=== PATIENT | male | born 1980 | race Hispanic/Latino ===

== ENCOUNTER 2019-02-02 14:37 | Inpatient (IN) ==
[2019-02-02] MEDS ORDERED: NS 1,000 ML IV ONE ×3 (15:22→19:00)
[2019-02-02] MEDS ORDERED: HUMULIN R IV ONE (15:22)
[2019-02-02 16:02] LABS: BASO# 0.02 X1000 (0.0-0.2); BASO% 0.1 % (0.0-0.8); HEMATOCRIT 46.9 % (42.0-52.0); HEMOGLOBIN 15.1 g/dL (14.0-18.0); IMM GRAN# 0.17 X1000 (0.0-0.04); IMM GRAN% 1.1 % (0.0-0.5); LYMPH# 0.67 X1000 (1.2-3.4); LYMPH% 4.3 % (20.5-51.1); MCH 27.7 PG (27-31); MCHC 32.2 g/dL (33-37); MCV 86.1 FL (81-99); MONO# 0.83 X1000 (0.11-0.59); MONO% 5.3 % (1.7-9.3); MPV 11.4 FL (7.4-10.4); NEUT# 13.94 X1000 (1.4-6.5); NEUT% 89.2 % (42.2-75.2); PLT 428 X1000 (130-400); RBC 5.45 XMIL (4.7-6.1); WBC 15.63 X1000 (4.8-10.8)
[2019-02-02 16:08] LABS: ALLEN TEST NO; BLOOD TYPE ARTERIAL; HCO3-(ACT) 7.7 mmoll (20.0-26.0); METHB 1.1 % (0.0-1.5); O2(CT) 20.6 mL/dL (15.0-23.0); O2HB 95.9 % (95.0-99.0); PO2(98.6) 110 mmHg (60-100); SAMPLE BLOOD; SAO2 97.2 % (95.0-100.0); THB 15.2 g/dL (11.5-17.4)
[2019-02-02 16:10] LABS: MODALITY ROOM AIR; pH(98.6) 7.15 (7.35-7.45)
[2019-02-02 16:11] LABS: PCO2(98.6) 12 mmHg (35-45)
[2019-02-02] MEDS: HUMULIN R 100 UNIT in NS 99 ML IV SCH ×3 (16:15→20:35)
--- NOTE | 2019-02-02 16:31 | Diag Imaging Result Doc PS360 ---
EXAM: CHEST-1 VIEW INDICATION: FEVER, COUGH TECHNIQUE: One view COMPARISON: None. FINDINGS: The lungs are grossly clear. There is no discrete pleural fluid collection or pneumothorax. The cardiomediastinal silhouette and central vasculature are grossly unremarkable. IMPRESSION: No evidence of acute pathology by plain radiograph. Electronically signed by Dylan Womack 02/02/2019 4:28 PM
[2019-02-02 16:32] LABS: AGAP 38; ALB/GLOB RATIO 0.9; ALBUMIN 4.2 g/dL (3.5-5.0); ALKALINE PHOSPHATASE 130 U/L (32-122); AMYLASE 65 U/L (20-200); BUN 20 mg/dL (8-22); CALCIUM 9.6 mg/dL (8.8-10.2); CHLORIDE 85 mmol/L (98-107); COSMO 293; CREATININE 1.3 mg/dL (0.7-1.2); ESTIMATED GFR > 60; GOT 10 U/L (10-34); GPT 17 U/L (10-44); LIPASE 39 U/L (13-60); POTASSIUM 4.8 mmol/L (3.5-5.1); SODIUM 130 mmol/L (136-145); TCO2 7 mmol/L (25-35); TOTAL BILIRUBIN 0.19 mg/dL (0.20-1.00); TOTAL PROTEIN 8.8 g/dL (6.3-8.3)
[2019-02-02 16:34] LABS: GLUCOSE 638 mg/dL (70-104)
[2019-02-02] MEDS ORDERED: NS 3,000 ML ONE (17:11)
--- NOTE | 2019-02-02 17:40 | PROVIDER DOCUMENTATION ---
This chart was entered by Maribel Hernandez Scribe, acting as scribe for Edgar Garsia MD. HPI-General Adult - General Chief Complaint: High Blood Sugar Stated Complaint: FLU SX,DIABETIC Time Seen by Provider: 02/02/19 15:21 Source: patient, family Allergies/Adverse Reactions: Patient Allergies Allergy/AdvReac Type Severity Reaction Status Date / Time No Known Allergies Allergy Verified 02/02/19 15:52 - History of Present Illness -Gen Adult Nature of Presenting Problems: 38 yom presents to the ed with family at bedside. pt c/o bodyaches, n/v tachycardia, dehydration and FSBG <500. pt sts onset 3 days prior Location of Pain/Injury: reports: generalized (bodyaches) Quality of Pain: reports: aching Severity: reports: moderate Onset/Duration: reports: 3 days ago Timing: reports: still present Context/Activities at Onset: reports: light activity Modifying Factors: improves with: nothing Associated Symptoms: reports: malaise, muscle aches, nausea, vomiting, weakness. denies: arm pain, back/neck pain, chest pain, diarrhea, dizziness, fever/chills, headaches, shortness of breath Similar Symptoms Previously?: No Recently seen or treated by another doctor?: No - Diabetes Related Context Context: reports: high blood sugar (<500) Review of Systems - Adult - REVIEW OF SYSTEMS - ADULT Constitutional: reports: see HPI, fatique. denies: chills, fever Eyes: reports: no symptoms reported Ears, Nose, Mouth & Throat: reports: no symptoms reported Cardiovascular: denies: chest pain, palpitations Respiratory: denies: cough, shortness of breath, wheezing Gastrointestinal: reports: see HPI, nausea, poor appetite, vomiting. denies: abdominal pain, diarrhea Genitourinary: reports: no symptoms reported Musculoskeletal: reports: see HPI, muscle aches. denies: back pain, neck pain Integumentary: reports: no symptoms reported Neurological: denies: dizziness/vertigo, headache/migraines Psychiatric: reports: no symptoms reported Endocrine: reports: no symptoms reported Hematologic/Lymphatic: reports: no symptoms reported Allergic/Immunologic: reports: no symptoms reported All Other Systems: Reviewed and Negative Past History - Adult - PAST MEDICAL HISTORY-ADULT Review of Records: reports: Old Records Reviewed, Nursing Assessment Review, Medications Reviewed, Social history reviewed & non-contributory. Major Childhood Illnesses: reports: denies history Cardiovascular: reports: denies history Respiratory: reports: denies history Gastrointestinal: reports: denies history Genitourinary: reports: denies history Musculoskeletal: reports: denies history Hand Dominance: Right Handed Neurological: reports: denies history Psychiatric: reports: denies history Endocrine/Immune: reports: Diabetes Diabetes Type: Type 2 Diabetes controlled by:: PO Meds Other Conditions: reports: denies history - PRIOR SURGERIES/PROCEDURES Surgical/Procedure History: reports: reviewed, not pertinent - IMMUNIZATION STATUS Childhood Immunizations: See Nurse Assessment Flu Vaccine: See Nurse Assessment - FAMILY HISTORY Family History: reviewed, not pertinent - SOCIAL HISTORY Smoking: denies Substance Use: denies Alcohol Use Frequency: never Living Situation: family Physical Exam-General - PHYSICAL EXAM-ADULT Initial Vital Signs Reviewed: Yes - CONSTITUTIONAL General Appearance: alert, mild distress, thin. negative: appears well - EYES Eyes: PERRL/EOMI, pale conjunctivae - HEAD, EARS, NOSE, MOUTH & THROAT HENMT: negative: moist mucous membranes (dry) - NECK Neck: normal inspection - RESPIRATORY Respiratory: chest non-tender, lungs clear, normal breath sounds - CARDIOVASCULAR Cardiovascular: normal peripheral pulses, tachycardia (147) - GASTROINTESTINAL (ABDOMEN) Abdominal Exam: normal bowel sounds, non tender, soft - LYMPHATIC Lymphatic: no adenopathy - MUSCULOSKELETAL Back Exam: normal inspection, no CVA tenderness, no vertebral tenderness Extremity: normal range of motion, normal gait, normal inspection, no pedal edema, no calf tenderness, normal capillary refill - SKIN Integumentary: warm/dry, pallor - NEUROLOGIC Neurologic: grossly normal - PSYCHIATRIC Psych/Mental Status: normal mood/affect, normal thought content, normal thought process, oriented x 3 Progress - PLAN OF CARE/RESULTS Progress/Plan/Lab Results: Vital Signs - 8 hr 02/02/19 14:44 Temperature 98.2 F Pulse Rate 147 H Respiratory Rate 20 Blood Pressure 110/78 O2 Sat by Pulse Oximetry 98 Laboratory Results - last 24 hr 02/02/19 14:49 POC Glucose 500 H Orders Category Date Time Status AMYLASE [CHEM] Stat Lab 02/02/19 15:21 Uncollected CBC WITH DIFF [HEME] Stat Lab 02/02/19 15:21 Uncollected COMPREHENSIVE METABOLIC PANEL [CHEM] Stat Lab 02/02/19 15:21 Uncollected INFLUENZA SCREEN A/B Stat Lab 02/02/19 15:21 Uncollected LIPASE [CHEM] Stat Lab 02/02/19 15:21 Uncollected 0.9% Sodium Chloride Inj [Ns] 1,000 ml Med 02/02/19 15:22 Active IV 999 mls/hr Insulin Human Regular [Humulin R] Med 02/02/19 15:22 Discontinued 10 unit IV NOW ONE Result Diagrams: 02/02/19 13:50 02/02/19 13:50 - REASSESSMENT Reassessment #1 Time Reassessed: 16:16 (pt is in bed with family at bedside. pt sts nausea has improved) Status: improving Reassessment #2 Time Reassessed: 17:37 (pt in bed resting) Status: improving (patient now stating he wants something to eat; labs confirm DKA, pt has been placed on insulin infusion protocol. will consult for admit.) - XRAY 1 XRAY: Bilateral XRAY Study: Chest Impression: See EMR Report (EXAM: CHEST-1 VIEW INDICATION: FEVER, COUGH TECHNIQUE: One view COMPARISON: None. FINDINGS: The lungs are grossly clear. There is no discrete pleural fluid collection or pneumothorax. The cardiomediastinal silhouette and central vasculature are grossly unremarkable. IMPRESSION: No evidence of acute pathology by plain radiograph. Electronically signed by Dylan Womack 02/02/2019 4:28 PM 02/02/191627 Interpreting Physician: Dylan Womack MD Dictated Date/Time: 02/02/191627 cc: Edgar Garsia MD; None,PCP) - CONSULTS/PCP/HOSPITALIST Notification #1 *Consult/PCP/Hospitalist*: hospitalist lópez Time Discussed: 17:37 Consult Disposition: Admit Departure - Departure Date of Disposition Decision: 02/02/19 Time of Disposition Decision: 17:39 DIAGNOSIS: DKA (diabetic ketoacidoses) Disposition: ADMITTED INPATIENT 09 Certified Medical Emergency: Emergent Condition: Critical Referrals and Follow-Ups: None,PCP [Primary Care Provider] - - Critical Care Note This patient required my direct & personal management of CC.: Yes Total Time (mins): 38 Critical Care Statement: This patient required my direct personal management to treat or rule out processes, the absence of which, could potentiallly result in sudden, clinically significant life or limb threatening deterioration. Attestation - Physician/ MICHELLE Attestation Patient care was provided by Advanced Practice Provider:: No The physician spent face to face time with patient:: Yes Advanced Practice Provider documentation review:: Supervising physician onsite and consulted in the evaluation and care of this patient. The physician did have a face to face encounter with the patient. This chart was documented by the indicated scribe, (Maribel Hernandez Scribe) and accurately reflects the services I performed and decisions made by me, Edgar Garsia MD, as attested by the provider's signature.
[2019-02-02] MEDS ORDERED: TYLENOL PO PRN (19:10)
[2019-02-02 19:22] LABS: ALLEN TEST YES; BE -15.3 mmoll (-3.0-3.0); BLOOD TYPE ARTERIAL; METHB 0.8 % (0.0-1.5); O2HB 96.1 % (95.0-99.0); PCO2(98.6) 21 mmHg (35-45); PO2(98.6) 97 mmHg (60-100); SAMPLE BLOOD; SAO2 97.5 % (95.0-100.0); THB 12.5 g/dL (11.5-17.4); pH(98.6) 7.27 (7.35-7.45)
[2019-02-02 19:23] LABS: MODALITY ROOM AIR
[2019-02-02 19:56] LABS: AGAP 24; BUN 16 mg/dL (8-22); CALCIUM 8.5 mg/dL (8.8-10.2); CHLORIDE 99 mmol/L (98-107); COSMO 282; CREATININE 0.9 mg/dL (0.7-1.2); ESTIMATED GFR > 60; GLUCOSE 353 mg/dL (70-104); MAGNESIUM 1.6 mg/dL (1.5-2.7); PHOSPHORUS 2.2 mg/dL (2.7-4.5); SODIUM 133 mmol/L (136-145); TCO2 10 mmol/L (25-35)
[2019-02-02] MEDS: ZITHROMAX 500 MG/NS 500 MG/250 ML IVPB IV SCH (20:09)
[2019-02-02] MEDS: LOVENOX SUBQ SCH (20:09)
--- NOTE | 2019-02-02 20:46 | HISTORY AND PHYSICAL ---
CHIEF COMPLAINT: Nausea, vomiting. HISTORY OF PRESENT ILLNESS: A 38-year-old male with a past medical history of diabetes, uncontrolled. As for the patient, only takes metformin 1000 mg twice a day. He has not been seen by a doctor for at least 1 year. Presented to the emergency department with a chief complaint of nausea, vomiting and also complaining of shortness of breath. As per the patient, he started having some flu-like symptoms last Thursday, 4 days ago and some cough. He started having greenish discharge through his nose as well. He did not seek any medical attention. Then, since yesterday, he started having nausea and vomiting and he has not been tolerating p.o. at all. Today, he was getting worse and he felt that he was more tachypneic so he decided to come to the emergency department. In the emergency department, he was found to have a WBC of 15.6, a pH of 7.1, pCO2 of 12. Sodium level is 130. Anion gap 38, creatinine 1.3, and glucose level 638. So this patient presented with DKA. He will receive 3 L of normal saline since he is dehydrated. We will start this patient on the DKA protocol and send this patient to the ICU. At the moment of my physical exam, I did not see any source of infection, but he feels some pressure at the level of the maxillary area. I will place this patient on azithromycin and probably some nasal decongestion medication. Like I said, we will monitor this patient in the ICU. We will ask for a hemoglobin A1c and we will do diabetes education. REVIEW OF SYSTEMS: As per the patient, he has been losing weight, around 40 pounds in 1 year unintentionally. He is not complaining of chest pain. Extremities, he is feeling some burning sensation at the level of the feet. The rest of the 14 points of review of systems were reviewed. All of them negative except as per HPI. PAST MEDICAL HISTORY: Diabetes. Apparently, he was diagnosed 4 years ago and he has been taking metformin 1000 mg twice a day. Apparently, he ran out of this medication yesterday. PAST SURGICAL HISTORY: None. SOCIAL HISTORY: He denies alcohol, tobacco use, and drugs. FAMILY HISTORY: Noncontributory. ALLERGIES: He denies any kind of allergies. PHYSICAL EXAMINATION: VITAL SIGNS: Temperature 98.2, pulse 130, respiratory rate 24, blood pressure 104/65, oxygen saturation 98% on room air. HEENT: Head normocephalic. No trauma. PERRLA. He has some pressure upon palpation at the level of the maxillary area. NECK: Supple. No JVD. Central trachea. CHEST: Clear to auscultation. No wheezing. No rales. ABDOMEN: Soft. Mild tenderness to palpation at the level of the periumbilical area. Positive bowel sounds. EXTREMITIES: No edema. No clubbing. No cyanosis. NEUROLOGICAL: The patient is alert and oriented x3. No focal deficits. LABORATORY: WBC 15.6, hemoglobin 15.1, hematocrit 46.9, platelets 428. PH 7.15, pCO2 of 12, pO2 of 110, bicarbonate 7.7. Sodium 130, potassium 4.8, chloride 85, BUN 20, creatinine 1.3, glucose 638, calcium 9.6. Magnesium 1.9. Alkaline phosphatase 130. Lipase 39, amylase 6.5. Albumin 4.2. ASSESSMENT AND PLAN: 1. Diabetic ketoacidosis. We will put this patient on the diabetic ketoacidosis protocol. He is receiving 3 L of fluid/normal saline at this moment. He looks dehydrated. I will ask for a hemoglobin A1c in the morning. We will replace his electrolytes and lab work frequently. 2. Type 2 diabetes, possible uncontrolled. As per the patient, when he measures his blood sugar at home, these are always around high 200s to 300s. I will monitor the blood sugar closely. I will get a hemoglobin A1c. I will do diabetes education. 3. Possible acute kidney injury. Creatinine is 1.3. We do not have a baseline creatinine. We will monitor. We will recheck that in the morning. 4. Hyponatremia. Likely secondary to hyperglycemia. Probably pseudohyponatremia. 5. Leukocytosis with possible sinusitis. I have placed this patient on azithromycin and ceftriaxone. We will monitor. cc: Fuentes Dooley MD
[2019-02-02] MEDS ORDERED: 1/2 NS 1,000 ML ONE (21:02)
[2019-02-02] MEDS: ROCEPHIN 1 GM in NS 50 ML IV SCH (21:12)
[2019-02-02] MEDS ORDERED: D5 1/2 NS 1,000 ML IV SCH (21:15)
[2019-02-02] MEDS ORDERED: SODIUM PHOSPHATE 30 MMOL in D5W 250 ML IV PRN ×2 (21:15→23:15)
[2019-02-02] MEDS ORDERED: MAGNESIUM SULFATE 2 GM/S.W.I. 2 GM/50 ML IVPB IV PRN (21:15)
[2019-02-02] MEDS ORDERED: D50W SYRINGE IV PRN ×2 (21:15→23:15)
[2019-02-02] MEDS ORDERED: 1/2 NS 1,000 ML IV SCH (21:15)
[2019-02-02] MEDS ORDERED: SODIUM BICARBONATE 8.4% 50 MEQ in D5W 250 ML IV PRN ×2 (21:15→23:15)
[2019-02-02] MEDS ORDERED: SODIUM BICARBONATE 8.4% 100 MEQ in D5W 500 ML IV PRN ×2 (21:15→23:15)
[2019-02-02] MEDS ORDERED: ZOFRAN IV PRN (21:45)
[2019-02-02 23:02] LABS: ALLEN TEST YES; BE -13.7 mmoll (-3.0-3.0); BLOOD TYPE ARTERIAL; HCO3-(ACT) 14.2 mmoll (20.0-26.0); O2(CT) 16.5 mL/dL (15.0-23.0); PCO2(98.6) 25 mmHg (35-45); PO2(98.6) 84 mmHg (60-100); SAMPLE BLOOD; SAO2 96.6 % (95.0-100.0); THB 12.3 g/dL (11.5-17.4); pH(98.6) 7.27 (7.35-7.45)
[2019-02-02 23:03] LABS: MODALITY ROOM AIR
[2019-02-02 23:15] LABS: MAGNESIUM 1.5 mg/dL (1.5-2.7); PHOSPHORUS 1.8 mg/dL (2.7-4.5)
[2019-02-02] MEDS ORDERED: HUMULIN R 100 UNIT in NS 99 ML IV SCH (23:15)
[2019-02-02 23:16] LABS: ESTIMATED GFR > 60
[2019-02-02 23:22] LABS: AGAP 20; BUN 12 mg/dL (8-22); CALCIUM 7.9 mg/dL (8.8-10.2); CHLORIDE 107 mmol/L (98-107); COSMO 282; CREATININE 0.8 mg/dL (0.7-1.2); GLUCOSE 219 mg/dL (70-104); SODIUM 138 mmol/L (136-145); TCO2 11 mmol/L (25-35)
[2019-02-03] MEDS ORDERED: POTASSIUM CHLORIDE 20 MEQ/SWI 20 MEQ/100 ML IVPB IV ONE (00:45)
[2019-02-03] MEDS: D5 1/2 NS 1,000 ML IV SCH ×5 (00:48→22:58)
[2019-02-03] MEDS: 1/2 NS 1,000 ML IV SCH ×4 (00:48→22:57)
[2019-02-03 03:17] LABS: INR 0.98; PROTIME 13.8 Seconds (11.0-16.0)
[2019-02-03 03:18] LABS: PTT 37.2 Seconds (22.3-41.8)
[2019-02-03 03:23] LABS: ESTIMATED GFR > 60
[2019-02-03 03:24] LABS: AGAP 25; BUN 11 mg/dL (8-22); CALCIUM 8.8 mg/dL (8.8-10.2); CHLORIDE 106 mmol/L (98-107); COSMO 289; CREATININE 0.8 mg/dL (0.7-1.2); GLUCOSE 283 mg/dL (70-104); MAGNESIUM 1.5 mg/dL (1.5-2.7); PHOSPHORUS 2.2 mg/dL (2.7-4.5); POTASSIUM 3.6 mmol/L (3.5-5.1); SODIUM 140 mmol/L (136-145); TCO2 9 mmol/L (25-35)
[2019-02-03 03:33] LABS: BLOOD TYPE ARTERIAL; SAMPLE BLOOD
[2019-02-03 03:34] LABS: ALLEN TEST YES; BE -12.8 mmoll (-3.0-3.0); HCO3-(ACT) 14.9 mmoll (20.0-26.0); METHB 0.8 % (0.0-1.5); MODALITY ROOM AIR; O2(CT) 16.7 mL/dL (15.0-23.0); O2HB 95.5 % (95.0-99.0); PCO2(98.6) 23 mmHg (35-45); PO2(98.6) 84 mmHg (60-100); SAO2 97.1 % (95.0-100.0); THB 12.4 g/dL (11.5-17.4); pH(98.6) 7.31 (7.35-7.45)
[2019-02-03] MEDS: MAGNESIUM SULFATE 2 GM/S.W.I. 2 GM/50 ML IVPB IV PRN ×2 (04:42→18:23)
[2019-02-03 05:29] LABS: BASO# 0.01 X1000 (0.0-0.2); BASO% 0.1 % (0.0-0.8); HEMOGLOBIN 12.6 g/dL (14.0-18.0); IMM GRAN# 0.05 X1000 (0.0-0.04); IMM GRAN% 0.3 % (0.0-0.5); LYMPH# 1.16 X1000 (1.2-3.4); LYMPH% 7.7 % (20.5-51.1); MCH 27.9 PG (27-31); MCHC 33.2 g/dL (33-37); MCV 84.3 FL (81-99); MONO# 1.41 X1000 (0.11-0.59); MONO% 9.4 % (1.7-9.3); MPV 10.4 FL (7.4-10.4); NEUT# 12.44 X1000 (1.4-6.5); NEUT% 82.5 % (42.2-75.2); PLT 337 X1000 (130-400); RBC 4.51 XMIL (4.7-6.1); RDW 12.7 % (11.5-14.5); WBC 15.07 X1000 (4.8-10.8)
[2019-02-03 05:40] LABS: HEMOGLOBIN A1C 15.3 % (4.8-6.0)
[2019-02-03 06:22] LABS: ALLEN TEST YES; BE -12.9 mmoll (-3.0-3.0); BLOOD TYPE ARTERIAL; HCO3-(ACT) 14.8 mmoll (20.0-26.0); METHB 0.3 % (0.0-1.5); O2(CT) 16.6 mL/dL (15.0-23.0); O2HB 95.8 % (95.0-99.0); PCO2(98.6) 24 mmHg (35-45); PO2(98.6) 83 mmHg (60-100); SAMPLE BLOOD; THB 12.3 g/dL (11.5-17.4)
[2019-02-03 06:23] LABS: MODALITY ROOM AIR
--- NOTE | 2019-02-03 07:06 | EKG Report ---
Test Performed on : 02/02/2019 6:51:54 PM Test Reason : DKA Blood Pressure : / mmHG Vent. Rate : 116 BPM Atrial Rate : 116 BPM P-R Int : 132 ms QRS Dur : 084 ms QT Int : 366 ms P-R-T Axes : 060 074 058 degrees QTc Int : 508 ms Sinus tachycardia. Otherwise normal ECG No previous ECGs available Unconfirmed Result
[2019-02-03] MEDS ORDERED: POTASSIUM CHLORIDE 20 MEQ/SWI 20 MEQ/100 ML IVPB IV PRN (08:15)
[2019-02-03] MEDS ORDERED: POTASSIUM CHLORIDE 40 MEQ/SWI 40 MEQ/100 ML IVPB IV PRN (08:15)
[2019-02-03 09:13] LABS: ESTIMATED GFR > 60
[2019-02-03 09:25] LABS: AGAP 18; ALBUMIN 3.1 g/dL (3.5-5.0); ALKALINE PHOSPHATASE 89 U/L (32-122); BUN 10 mg/dL (8-22); CALCIUM 8.4 mg/dL (8.8-10.2); CHLORIDE 108 mmol/L (98-107); CHOLESTEROL 257 mg/dL (0-200); COSMO 283; CREATININE 0.8 mg/dL (0.7-1.2); GLUCOSE 184 mg/dL (70-104); GOT 8 U/L (10-34); GPT 12 U/L (10-44); HDL 66 mg/dL (35-55); LDL 161 mg/dL; PHOSPHORUS 1.9 mg/dL (2.7-4.5); POTASSIUM 3.4 mmol/L (3.5-5.1); SODIUM 140 mmol/L (136-145); TCO2 14 mmol/L (25-35); TOTAL BILIRUBIN 0.22 mg/dL (0.20-1.00); TOTAL PROTEIN 6.2 g/dL (6.3-8.3); TRIGLYCERIDES 149 mg/dL (39-160); VLDL 30 mg/dL
--- NOTE | 2019-02-03 10:15 | PROGRESS NOTE ---
DATE: 02/03/2019 SUBJECTIVE: This patient states that he is feeling a little bit better but he was having nausea and vomiting during the night, his blood sugar seems to be better controlled. Hemoglobin A1c is really low at 15.3, his anion gap is still high so we will continue with the insulin drip, troponins are negative. OBJECTIVE: Vital Signs: Temperature 98.1 degrees, pulse 110, respiratory rate 15, blood pressure 124/71, oxygen saturation 100% on room air. HEENT: Head normocephalic. No trauma. PERRLA. Face: He does have some mild pressure at the level of the axillary area below the eyes. Neck: Supple. No JVD. No masses. Central trachea. Chest: Clear to auscultation. No wheezing. No rales. Abdomen: Soft, nontender, nondistended. No hepatosplenomegaly. Extremities: No edema. No clubbing. No cyanosis. Neurological: The patient is alert and oriented x3. No focal deficit. LABORATORY DATA: Sodium 140, potassium 3.4, chloride 108, bicarbonate 14, BUN 10, creatinine 0.8, anion gap 18, glucose 184, calcium 8.4. Phosphorus 1.9. Magnesium 2. Albumin 3.1. Triglyceride 143, cholesterol 257. LDH 161, HDL 66. TSH 0.3. Lactate 0.6. ASSESSMENT AND PLAN: 1. Diabetic ketoacidosis. Continue with insulin drip, DKA protocol. We will replace the electrolytes, continue with fluids. He is feeling better but he had some nausea and vomiting during the night. 2. Uncontrolled type 2 diabetes. Hemoglobin A1c 15.3. I had a large conversation with this patient and the which is at the bedside about these results. He needs to monitor his blood sugar closely. It looks like he started having some peripheral neuropathy already. I will continue with daily education. 3. Acute kidney injury, resolved. 4. Hyponatremia, resolved. This was likely secondary to a pseudohyponatremia due to hyperglycemia. 5. Leukocytosis with possible sinusitis. Continue with antibiotics. His white blood cell is still high at 15 but no fever documented. 6. Hypokalemia. We will replace the potassium. We will follow the diabetic ketoacidosis protocol. cc: Fuentes Dooley MD
[2019-02-03] MEDS: POTASSIUM CHLORIDE 20 MEQ/SWI 20 MEQ/100 ML IVPB IV PRN ×4 (10:27→20:26)
[2019-02-03 12:23] LABS: AGAP 15; BUN 9 mg/dL (8-22); CALCIUM 8.4 mg/dL (8.8-10.2); CHLORIDE 105 mmol/L (98-107); COSMO 273; CREATININE 0.7 mg/dL (0.7-1.2); ESTIMATED GFR > 60; GLUCOSE 138 mg/dL (70-104); MAGNESIUM 1.8 mg/dL (1.5-2.7); PHOSPHORUS 1.5 mg/dL (2.7-4.5); POTASSIUM 3.3 mmol/L (3.5-5.1); SODIUM 136 mmol/L (136-145); TCO2 16 mmol/L (25-35)
[2019-02-03 16:18] LABS: AGAP 15; BUN 8 mg/dL (8-22); CALCIUM 8.6 mg/dL (8.8-10.2); CHLORIDE 104 mmol/L (98-107); COSMO 274; CREATININE 0.6 mg/dL (0.7-1.2); ESTIMATED GFR > 60; GLUCOSE 191 mg/dL (70-104); MAGNESIUM 1.7 mg/dL (1.5-2.7); PHOSPHORUS 1.3 mg/dL (2.7-4.5); POTASSIUM 3.2 mmol/L (3.5-5.1); SODIUM 135 mmol/L (136-145); TCO2 16 mmol/L (25-35)
[2019-02-03] MEDS: ZITHROMAX 500 MG/NS 500 MG/250 ML IVPB IV SCH (17:46)
[2019-02-03 19:54] LABS: ESTIMATED GFR > 60
[2019-02-03 19:55] LABS: AGAP 13; BUN 7 mg/dL (8-22); CALCIUM 8.6 mg/dL (8.8-10.2); CHLORIDE 106 mmol/L (98-107); COSMO 274; CREATININE 0.6 mg/dL (0.7-1.2); GLUCOSE 131 mg/dL (70-104); MAGNESIUM 1.9 mg/dL (1.5-2.7); POTASSIUM 2.9 mmol/L (3.5-5.1); SODIUM 137 mmol/L (136-145); TCO2 18 mmol/L (25-35)
[2019-02-03] MEDS: ROCEPHIN 1 GM in NS 50 ML IV SCH (20:26)
[2019-02-03] MEDS: LOVENOX SUBQ SCH (20:26)
[2019-02-04 00:45] LABS: AGAP 17; BUN 7 mg/dL (8-22); CALCIUM 8.1 mg/dL (8.8-10.2); CHLORIDE 103 mmol/L (98-107); COSMO 275; CREATININE 0.6 mg/dL (0.7-1.2); ESTIMATED GFR > 60; GLUCOSE 226 mg/dL (70-104); MAGNESIUM 1.8 mg/dL (1.5-2.7); PHOSPHORUS 1.8 mg/dL (2.7-4.5); POTASSIUM 3.4 mmol/L (3.5-5.1); SODIUM 135 mmol/L (136-145); TCO2 15 mmol/L (25-35)
[2019-02-04] MEDS: POTASSIUM CHLORIDE 20 MEQ/SWI 20 MEQ/100 ML IVPB IV PRN ×2 (00:58→03:16)
[2019-02-04 03:44] LABS: AGAP 14; BUN 6 mg/dL (8-22); CALCIUM 7.9 mg/dL (8.8-10.2); CHLORIDE 102 mmol/L (98-107); COSMO 273; CREATININE 0.6 mg/dL (0.7-1.2); ESTIMATED GFR > 60; GLUCOSE 258 mg/dL (70-104); MAGNESIUM 1.8 mg/dL (1.5-2.7); PHOSPHORUS 2.4 mg/dL (2.7-4.5); POTASSIUM 3.6 mmol/L (3.5-5.1); SODIUM 133 mmol/L (136-145); TCO2 17 mmol/L (25-35)
[2019-02-04 05:17] LABS: BASO# 0.01 X1000 (0.0-0.2); BASO% 0.1 % (0.0-0.8); EOS# 0.04 X1000 (0.0-0.7); EOS% 0.4 % (0.0-10.0); HEMATOCRIT 31.6 % (42.0-52.0); HEMOGLOBIN 10.4 g/dL (14.0-18.0); IMM GRAN# 0.04 X1000 (0.0-0.04); IMM GRAN% 0.4 % (0.0-0.5); LYMPH# 1.82 X1000 (1.2-3.4); LYMPH% 18.4 % (20.5-51.1); MCH 27.5 PG (27-31); MCHC 32.9 g/dL (33-37); MCV 83.6 FL (81-99); MONO# 0.66 X1000 (0.11-0.59); MONO% 6.7 % (1.7-9.3); MPV 10.6 FL (7.4-10.4); NEUT# 7.33 X1000 (1.4-6.5); PLT 290 X1000 (130-400); RBC 3.78 XMIL (4.7-6.1); RDW 12.7 % (11.5-14.5)
[2019-02-04] MEDS: D5 1/2 NS 1,000 ML IV SCH (05:23)
[2019-02-04 08:30] LABS: AGAP 13; BUN 5 mg/dL (8-22); CHLORIDE 103 mmol/L (98-107); COSMO 274; CREATININE 0.4 mg/dL (0.7-1.2); ESTIMATED GFR > 60; GLUCOSE 186 mg/dL (70-104); MAGNESIUM 1.7 mg/dL (1.5-2.7); PHOSPHORUS 2.1 mg/dL (2.7-4.5); POTASSIUM 3.4 mmol/L (3.5-5.1); SODIUM 136 mmol/L (136-145); TCO2 20 mmol/L (25-35)
[2019-02-04] MEDS ORDERED: KLOR-CON PO ONE (09:12)
[2019-02-04] MEDS ORDERED: BASAGLAR SUBQ SCH (09:15)
[2019-02-04] MEDS: HUMULIN R SUBQ SCH ×3 (13:05→22:19)
--- NOTE | 2019-02-04 15:00 | PROGRESS NOTE ---
DATE: 02/04/2019 SUBJECTIVE: The patient is feeling better today. He was not complaining of chest pain or shortness of breath, nausea, no vomiting today, hemoglobin A1c is really high at 15.3, his anion gap is closed so I will stop the insulin drip and I will start this patient on long-acting insulin. He received at little bit more of 50 units in 24 hours so I will start him on 40 units and I will continue with pattern of blood sugar and sliding scale insulin, I will put this patient on a diet as well. OBJECTIVE: Vital Signs: Temperature 98.8 degrees, pulse 96, respiratory rate 16, blood pressure 111/64, oxygen saturation 99 on room air. HEENT: Head normocephalic. No trauma. PERRLA. Some pressure at the level of the a maxillary area below the eyes. Neck: Supple. No JVD. Central trachea. Chest: Clear to auscultation. No wheezing. No rales. Abdomen: Soft, nontender, nondistended. No hepatosplenomegaly. Extremities: No edema. No clubbing. No cyanosis. Neurological: The patient is alert and oriented x3. No focal deficits. LABORATORY DATA: WBC 9.9, hemoglobin 10.4, hematocrit 31.6, platelets 290,000. Sodium 136, potassium 3.4, chloride 103, bicarbonate 20, BUN 5, creatinine 0.4, glucose 186, calcium 8. Magnesium 1.7. ASSESSMENT AND PLAN: 1. Diabetic ketoacidosis, resolved. I will stop the insulin drip and I will put him on long- acting insulin, we will continue with sliding scale insulin and pattern of blood sugar, he is feeling better. He is not having nausea and vomiting. 2. Uncontrolled type 2 diabetes, hemoglobin A1c 15.3. I had a large conversation with the patient and the family at the bedside. He needs to monitor his blood sugar closely. It looks like he is starting to have some peripheral neuropathy already. I will continue with daily education. 3. Acute kidney injury, resolved. 4. Hyponatremia, resolved. 5. Leukocytosis, likely secondary to sinusitis, continue with antibiotics. White blood cell count is normal today. 6. Sinusitis, continue with antibiotics, this is getting better. 7. Hypokalemia. I will replace the potassium today. cc: Fuentes Dooley MD
[2019-02-04] MEDS: ZITHROMAX 500 MG/NS 500 MG/250 ML IVPB IV SCH (18:00)
[2019-02-04] MEDS: LOVENOX SUBQ SCH (19:11)
[2019-02-04] MEDS: ROCEPHIN 1 GM in NS 50 ML IV SCH (19:11)
[2019-02-05 05:39] LABS: BASO# 0.01 X1000 (0.0-0.2); BASO% 0.1 % (0.0-0.8); EOS# 0.05 X1000 (0.0-0.7); EOS% 0.7 % (0.0-10.0); HEMATOCRIT 33.2 % (42.0-52.0); HEMOGLOBIN 11.3 g/dL (14.0-18.0); IMM GRAN# 0.06 X1000 (0.0-0.04); IMM GRAN% 0.9 % (0.0-0.5); LYMPH# 2.25 X1000 (1.2-3.4); LYMPH% 32.8 % (20.5-51.1); MCH 28.2 PG (27-31); MCV 82.8 FL (81-99); MONO# 0.62 X1000 (0.11-0.59); MPV 10.5 FL (7.4-10.4); NEUT# 3.87 X1000 (1.4-6.5); NEUT% 56.5 % (42.2-75.2); PLT 309 X1000 (130-400); RBC 4.01 XMIL (4.7-6.1); RDW 12.5 % (11.5-14.5); WBC 6.86 X1000 (4.8-10.8)
[2019-02-05] MEDS: HUMULIN R SUBQ SCH (06:04)
[2019-02-05 06:10] LABS: AGAP 12; BUN 5 mg/dL (8-22); CALCIUM 8.4 mg/dL (8.8-10.2); CHLORIDE 103 mmol/L (98-107); COSMO 280; CREATININE 0.4 mg/dL (0.7-1.2); ESTIMATED GFR > 60; GLUCOSE 185 mg/dL (70-104); POTASSIUM 3.3 mmol/L (3.5-5.1); SODIUM 139 mmol/L (136-145); TCO2 24 mmol/L (25-35)
[2019-02-05] MEDS ORDERED: KLOR-CON PO ONE (07:24)
[2019-02-05] MEDS ORDERED: INSULIN PEN NEEDLES ONE ×2 (07:38→10:33)
[2019-02-05 07:43] VITALS: BP 102/69
[2019-02-05] MEDS ORDERED: BASAGLAR SUBQ SCH (09:00)
--- NOTE | 2019-02-06 03:30 | DISCHARGE SUMMARY ---
ADMISSION DATE: 02/02/2019 DISCHARGE DATE: 02/05/2019 ADMISSION DIAGNOSES: 1. Diabetic ketoacidosis. 2. Uncontrolled type 2 diabetes mellitus. 3. Renal insufficiency. 4. Hyponatremia. 5. Leukocytosis with possible sinusitis. DISCHARGE DIAGNOSES: 1. Diabetic ketoacidosis, resolved. 2. Uncontrolled type 2 diabetes mellitus. 3. Acute kidney injury, resolved. 4. Hyponatremia, resolved. 5. Leukocytosis and sinusitis. 6. Hypokalemia. CONSULTATIONS: None. DIAGNOSTIC PROCEDURES AND FINDINGS: Chest x-ray on 02/02/2019 was negative. EKG on 02/02/2019 showed sinus tachycardia, no acute abnormalities. HOSPITAL COURSE: Mr. Starr is a 38-year-old male with a history of uncontrolled diabetes mellitus who has not followed up with a physician in over a year. He had nausea, vomiting and some mild shortness of breath on arrival to the ER, which were his main complaints. He has also been having nasal congestion with green discharge. In the ER, he was noted to have leukocytosis and evidence of DKA. He was admitted and placed on DKA protocol and given antibiotics for sinusitis. Hemoglobin A1C was measured at 15.3, which revealed extremely poor control. He was educated extensively on diabetic diet, exercise and overall lifestyle modifications. With insulin drip and antibiotics, the patient recovered remarkably fast. We replaced electrolytes as necessary during his admission. He is feeling better and is ready for discharge home. He has reached maximum benefit of inpatient hospitalization. DISCHARGE MEDICATIONS: 1. Acetaminophen 650 mg p.o. as needed. 2. Augmentin 875 mg, one p.o. q.12h for 5 days. 3. Basaglar 45 units subcutaneously q.a.m. 4. Metformin 500 mg p.o. b.i.d. DISCHARGE LABORATORY DATA: WBC 6.8, hemoglobin 11.3, hematocrit 33.2, platelet count 309. Sodium 139, potassium 3.3, chloride 103, CO2 of 24, anion gap 12, BUN 5, creatinine 0.4, glucose 185, calcium 8.4. DISCHARGE DIET: Diabetic diet. DISCHARGE ACTIVITY: Resume activity as tolerated. DISPOSITION AND OTHER DISCHARGE INSTRUCTIONS: The patient is discharged home to self-care. He is to follow up with the PCP of his choosing within the next 2 weeks to a month. He is to continue on medications as directed. He is to return to the ER or call 911 for worsening complaints or concerns. All questions were answered. DISCHARGE TIME: Greater than 35 minutes. Dictated by SHANTI Veras for Fuentes Dooley MD cc: SHANTI Veras MD
== END 2019-02-05 10:25 | disposition home or self-care (01) | DRG 638 ==
LOC: ED 14:37 → 3S 14:38
PROVIDERS: ATTEND Internal Medicine
CPT/HCPCS: 71010; 71045; 80048; 80053; 80061; 82150; 82550; 82805; 82948; 83036; 83605; 83690; 83735; 84100; 84443; 84484; 85025; 85610; 85730; 87040; 87088; 87275; 87276; 87804; 93005; 96361; 96365; 96372; 96375; 99285; A9270; J0456; J0696; J1650; J2405; J3475; J3480; J7030; J7060; XXXXX